=== PATIENT | male | born 1930 | race Hispanic/Latino ===

== ENCOUNTER → 2018-03-14 | Day surgery (SDC) | payer MEDICARE ==
[2018-03-13 10:27] LABS: BASOPHILS # (AUTO) 0.1 (0.0-0.1); BASOPHILS % 0.6 % (0.0-1.0); EOSINOPHILS # (AUTO) 0.3 (0.0-0.4); EOSINOPHILS % 2.4 % (0.0-6.0); HEMATOCRIT 36.8 % (38.2-49.6); HEMOGLOBIN 12.4 g/dL (14.0-18.0); LYMPHOCYTES # (AUTO) 2.6 (1.0-3.2); LYMPHOCYTES % 24.9 % (18.0-39.1); MEAN CORPUSCULAR HGB CONC 33.7 g/dL (31-35); MEAN CORPUSCULAR VOLUME 88.9 fL (81-99); MONOCYTES # (AUTO) 0.7 (0.2-0.8); MONOCYTES % 6.2 % (4.4-11.3); NEUTROPHILS # (AUTO) 6.9 (2.1-6.9); NEUTROPHILS % 65.7 % (38.7-80.0); PLATELET COUNT 224 x10e3/uL (140-360); RED BLOOD COUNT 4.14 x10e6/uL (4.3-5.7); RED CELL DISTRIBUTION WIDTH 13.2 % (11.7-14.4)
[2018-03-13 10:42] LABS: CALCIUM 9.5 mg/dL (8.4-10.2); CREATININE, SERUM 1.54 mg/dL (0.72-1.25)
--- NOTE | 2018-03-13 11:03 | Diagnostic Imaging Report ---
PROCEDURE: Frontal and lateral views of the chest. COMPARISON: Chest radiograph 01/02/16. INDICATIONS: PRE OPERATIVE CHEST X-RAY FOR CYSTO SURGERY FINDINGS: Lines/tubes: None. Lungs: The lungs are well inflated and clear. There is no evidence of pneumonia or pulmonary edema. Pleura: No evidence of pneumothorax. Trace right pleural effusion or scarring at the costophrenic angle is unchanged. Heart and mediastinum: The cardiomediastinal silhouette is unchanged. Atherosclerotic aortic calcification is noted. Bones: No acute bony abnormality. IMPRESSION: Clear lungs. No evidence of pneumonia or pulmonary edema. Dictated by: JUSTUS TRIMBLE M.D. on 03/13/2018 at 11:07 Electronically approved by: JUSTUS TRIMBLE M.D. on 03/13/2018 at 11:07
[~2018-03-14] MED LIST: AMLODIPINE BESYL5 MG PO; AMOXICILLIN500 MG PO; ASPIR 8181 MG; ASPIRIN81 MG; BELLADONNA/OPIUM 30 MG SUPP RC ONE; CEFTRIAXONE SOD 1 GM VIAL ONE; CILOSTAZOL100 MG PO; CIPROFLOXACIN500 M1; CLONIDINE HCL0.1 MG PO; CLOPIDOGREL75 MG PO; DEXAMETHASONE SOD PHOS INJ 4 MG/ML VIAL ONE; DOXAZOSIN MESYLA2 MG PO; FENTANYL CITRATE/PF 100MCG/2 ML INJ ONE; GENTAMICIN 80MG/NS 100 ML 200 ML IV ONE; HYDROCHLOROTHIA25 MG PO; IOPAMIDOL 300MG/ML 50ML INFUS..BTL IV ONE; IV ANTIBIOTIC IV; LIDOCAINE HCL 2% LOCAL INJ 5 ML SDV VIAL INJ ONE; LINZESS PO; LOSARTAN POTAS100 MG PO; LOVASTATIN40 MG PO; METOCLOPRAMIDE10 MG PO; MYRBETRIQ50 MG PO; OMEPRAZOLE40 MG PO; ONDANSETRON HCL INJ 2 MG/ML VIAL ONE; OXYBUTYNIN CHLOR5 MG PO; PROPOFOL IV EMULSION 10 MG/ML 20 ML VIAL ONE; QUETIAPINE FUMA25 MG PO; SEVOFLURANE INHAL SOLN 250 ML PEN BTL ONE; SUCRALFATE1 GM PO; VERAPAMIL ER240 M1; VESICARE5 MG PO; avodart
--- NOTE | 2018-05-01 01:47 | Operative Report ---
DATE OF PROCEDURE: March 14, 2018 PREOPERATIVE DIAGNOSES 1. Chronic renal insufficiency. 2. Urethral stricture disease. POSTOPERATIVE DIAGNOSES 1. Chronic renal insufficiency. 2. Urethral stricture disease. OPERATIONS PERFORMED 1. Cystourethroscopy with calibration and dilation of urethral stricture (separate procedure performed for the diagnosis of stricture). 2. Cystourethroscopy with bilateral ureteral catheterization and retrograde ureteropyelography (separate procedure performed for the chronic renal insufficiency). 3. Interpretation of retrograde pyelography. 4. Supervision of fluoroscopy. No radiologist present. 5. Interpretation of cystography. ANESTHESIA: General. COMPLICATIONS: None. CLINICAL SUMMARY: Michael Chaudhary is an 87-year-old man who has required recurrent dilations. He is status post transurethral resection of the prostate previously. He has urinary tract infections and renal insufficiency. He is brought for dilation. He is aware of the risks of bleeding, infection, injury to adjacent structures, need for additional procedures, and elected to proceed. OPERATIVE PROCEDURE IN DETAIL: Informed consent was verified. Michael Chaudhary was properly identified, taken to the operating room, placed on the cystoscopy table in supine position. Anesthesia was uneventfully begun. The patient was then carefully and gently repositioned in the dorsal lithotomy position with all pressure points well padded. His genitalia were prepared and draped in the sterile fashion. We could not place the cystoscope sheath into the patient's urethra due to stricture. We dilated the patient's distal urethra to 26-Sri [place]ankan progressively utilizing female sounds. We then utilized male Chilton sounds to dilate the proximal urethra to 28-Sri [place]ankan. Utilizing female sounds, we then inserted the cystoscope sheath with a visual obturator in place into the urethra. There was panurethral urethral stricture disease at closer end near the proximal penile urethra as well as in the bulbar region there were additional strictures. We removed the cystoscope and then we utilized Chilton male sounds to dilate the proximal urethra to 28-[place]ankan in size. Following this, we scoped the patient's urethra again. The urethra now was wide open despite all of its scarring and no longer did it exhibit strictures. We passed the normal sphincteric region, went into the prostate bed which was wide open being status post transurethral resection. There was minimal regrowth of the right lobe that was not obstructing. Panendoscopy of the urinary bladder revealed trabeculations. Normally positioned and configured ureteral orifices were identified. No suspicious lesions were noted. An 8-S[place]ankan catheter was used to cannulate each ureter and retrograde ureteropyelograms were performed. INTERPRETATION OF RETROGRADE URETEROPYELOGRAPHY: Contrast was instilled in a retrograde fashion bilaterally. There were no tumors, no stones and no diverticula. Unobstructed drainage was observed bilaterally fluoroscopically. Both of the patient's collecting systems were bifid in nature. Over a guidewire, we placed a litigation counsel tip Matthews catheter and a large-bore Matthews catheter. Once it was in position and inflated, cystography was performed. INTERPRETATION OF CYSTOGRAPHY: Contrast was instilled in a retrograde fashion via the Matthews catheter. The Matthews catheter balloon was within the patient's bladder. There was no sign of extravasation. Evaluation of reflux is limited due to the patient's prior retrogrades. The patient was then uneventfully reversed from anesthesia and taken to the recovery room in stable condition. There were no complications during the procedure. The patient tolerated the procedure well. Explicit postoperative instructions were given. We will follow the patient up in the office. Upon followup, we plan to place the patient to intermittent catheterizations regimen. This regimen will entail utilizing a 22-[place]ank[place] Coude-tipped Matthews catheters in an attempt to dilate the entire urethra. Should that fail, the patient will need to go back to a 20-[place]ankan coude-tip catheter in size and utilize that. Should that fail, the patient needs to go to an 18. The patient can then progressively dilate with larger bore catheters back to 22-Sri Lankan. Job#: [id number] GE cc:ALEX DINH MD
== END | disposition home or self-care (01) ==
LOC: OR 11:46
PROVIDERS: ATTEND Urology
DX: N35.9 Urethral stricture, unspecified (principal); I12.9 Hypertensive chronic kidney disease with stage 1 through stage 4 chronic kidney disease, or unspecified chronic kidney disease; N18.9 Chronic kidney disease, unspecified; N32.89 Other specified disorders of bladder; N40.1 Benign prostatic hyperplasia with lower urinary tract symptoms; N39.41 Urge incontinence; R33.8 Other retention of urine; R39.14 Feeling of incomplete bladder emptying; R35.1 Nocturia; N32.81 Overactive bladder; N43.3 Hydrocele, unspecified; N50.0 Atrophy of testis; N39.0 Urinary tract infection, site not specified; N43.40 Spermatocele of epididymis, unspecified; N40.3 Nodular prostate with lower urinary tract symptoms; N20.0 Calculus of kidney; K58.9 Irritable bowel syndrome, unspecified; H91.90 Unspecified hearing loss, unspecified ear; H54.61 Unqualified visual loss, right eye, normal vision left eye; Z01.810 Encounter for preprocedural cardiovascular examination; Z01.812 Encounter for preprocedural laboratory examination; Z01.818 Encounter for other preprocedural examination; Z79.02 Long term (current) use of antithrombotics/antiplatelets; Z98.890 Other specified postprocedural states
CPT/HCPCS: 36415; 52281; 71046; 80048; 85025; 93005; C1758; J0696; J1100; J1580; J2001; J2405; Q9967

== ENCOUNTER → 2018-07-25 | Outpatient (CLI) | payer MEDICARE ==
[~2018-07-25] MED LIST changes: +AMITIZA24 MCG PO; -BELLADONNA/OPIUM 30 MG SUPP RC ONE; -CEFTRIAXONE SOD 1 GM VIAL ONE; -DEXAMETHASONE SOD PHOS INJ 4 MG/ML VIAL ONE; +DIATRIZOATE MEGL/DIATRIZOA SOD 30 ML BTL PO ONE; -FENTANYL CITRATE/PF 100MCG/2 ML INJ ONE; +GABAPENTIN400 MG PO; -GENTAMICIN 80MG/NS 100 ML 200 ML IV ONE; -IOPAMIDOL 300MG/ML 50ML INFUS..BTL IV ONE; +IOPAMIDOL 370 MG/ML 200 ML INFUS..BTL INJ ONE; -LIDOCAINE HCL 2% LOCAL INJ 5 ML SDV VIAL INJ ONE; +NITROFURANTOIN100 MG PO; -ONDANSETRON HCL INJ 2 MG/ML VIAL ONE; -PROPOFOL IV EMULSION 10 MG/ML 20 ML VIAL ONE; +RANITIDINE HCL300 MG PO; -SEVOFLURANE INHAL SOLN 250 ML PEN BTL ONE; +SODIUM CHLORIDE 0.9% 250ML 500 ML ONE; +SODIUM CHLORIDE 0.9% 50ML 50 ML ONE
[2018-07-25 12:16] LABS: CREATININE, SERUM 1.33 mg/dL (0.72-1.25)
--- NOTE | 2018-07-25 14:46 | Diagnostic Imaging Report ---
EXAMINATION: CT of the abdomen and pelvis with contrast. TECHNIQUE: Spiral CT images of the abdomen and pelvis were performed from the lung bases to the lesser trochanters after the intravenous administration of 100 cc of Isovue 370 and the oral administration of diluted Gastrografin. Coronal and sagittal reformatted images were obtained. COMPARISON: CTA abdomen and pelvis 06/08/2015 CLINICAL HISTORY:Abdominal distention, chronic abdominal pain DISCUSSION: ABDOMEN/PELVIS: LOWER THORAX:Stable 4 mm pulmonary nodule in the right lower lobe (series 2, image 10). HEPATOBILIARY: Stable 1.1 cm simple cyst in hepatic segment GRAYSON (series 2, image 11). No other focal hepatic lesions. No intra or extrahepatic biliary ductal dilation. GALLBLADDER: Multiple gallstones are again noted in the dependent portion of the gallbladder lumen. No wall thickening or pericholecystic fluid. SPLEEN: No splenomegaly. PANCREAS: No focal masses or ductal dilatation. ADRENALS: No adrenal nodules. KIDNEYS/URETERS: No hydronephrosis, stones, or solid mass lesions. Slight interval increase in size in 4.3 cm interpolar and 1.6 cm superior pole simple cysts in the right kidney (series 2, image 27 and 20), which previously measured 4.0 and 1.4 cm in greatest diameter, respectively. Stable 2.3 cm simple cyst in the medial mid to inferior left kidney (2, image 31). Stable 1.0 cm simple cyst in the left interpolar region (series 2, image 26). PELVIC ORGANS/BLADDER: Bladder is unremarkable. No focal lesions or wall thickening. Dystrophic calcifications in the prostate. PERITONEUM/RETROPERITONEUM: No free air or fluid. LYMPH NODES: No intra-abdominal, retroperitoneal, pelvic or inguinal lymphadenopathy. VESSELS: The celiac trunk,superior and inferior mesenteric and bilateral renal arteries are patent The portal, superior mesenteric and splenic veins are patent. Atherosclerotic calcification of the abdominal aorta and iliac vessels GI TRACT: No bowel dilation or evidence of obstruction. No pericolonic inflammatory changes. Descending and sigmoid colon extensive diverticulosis, without diverticulitis. Stomach is unremarkable. BONES AND SOFT TISSUE: No aggressive lytic lesions. Multilevel degenerative disc changes in the lower thoracic and lumbosacral spine, worse at L2-L3, L3-L4 and L5-S1. No soft tissue abnormalities. IMPRESSION: 1. No acute abdominopelvic abnormalities. No bowel dilation or evidence of obstruction. No pericolonic inflammatory changes. 2. Descending and sigmoid colon diverticulosis, without diverticulitis. 3. Slight interval increase in size of renal simple cysts, as described. 4. Cholelithiasis, without CT evidence of cholecystitis. 5. Stable simple hepatic cyst. 6. Stable 4 mm pulmonary nodule in the right lower lobe since 2015, which is presumed benign. Signed by: Dr. Edy Islas M.D. on 07/25/2018 2:43 PM
== END ==
LOC: CT 11:21
PROVIDERS: ATTEND Internal Medicine Gastroenterology
DX: R10.32 Left lower quadrant pain (principal); R14.0 Abdominal distension (gaseous); K59.00 Constipation, unspecified; I10 Essential (primary) hypertension; E66.3 Overweight; Z71.3 Dietary counseling and surveillance
CPT/HCPCS: 36415; 74177; 82565; 84520; 96360; J7050; Q9663; Q9967

== ENCOUNTER → 2018-08-20 | Day surgery (SDC) | payer MEDICARE ==
[2018-08-15 10:03] LABS: BASOPHILS # (AUTO) 0.1 (0.0-0.1); BASOPHILS % 0.6 % (0.0-1.0); EOSINOPHILS # (AUTO) 0.3 (0.0-0.4); EOSINOPHILS % 2.4 % (0.0-6.0); HEMATOCRIT 37.5 % (38.2-49.6); HEMOGLOBIN 12.7 g/dL (14.0-18.0); LYMPHOCYTES # (AUTO) 3.4 (1.0-3.2); LYMPHOCYTES % 27.9 % (18.0-39.1); MEAN CORPUSCULAR HEMOGLOBIN 30.6 pg (28-32); MEAN CORPUSCULAR HGB CONC 33.9 g/dL (31-35); MEAN CORPUSCULAR VOLUME 90.4 fL (81-99); MONOCYTES % 8.1 % (4.4-11.3); NEUTROPHILS # (AUTO) 7.3 (2.1-6.9); NEUTROPHILS % 60.4 % (38.7-80.0); PLATELET COUNT 227 x10e3/uL (140-360); RED BLOOD COUNT 4.15 x10e6/uL (4.3-5.7); RED CELL DISTRIBUTION WIDTH 13.3 % (11.7-14.4)
[2018-08-15 10:26] LABS: ALBUMIN 3.6 g/dL (3.5-5.0); ANION GAP 11.7 mmol/L (8-16); CALCIUM 9.2 mg/dL (8.4-10.2); CREATININE, SERUM 1.4 mg/dL (0.72-1.25); POTASSIUM 3.7 mmol/L (3.5-5.1)
[~2018-08-20] MED LIST changes: +BUPIVACAINE HCL 0.5% INJ 30 ML VIAL INJ ONE; +CEFAZOLIN SOD 2 GM/D5W 50ML 50 ML IV ONE; +DEXAMETHASONE SOD PHOS INJ 4 MG/ML VIAL ONE; -DIATRIZOATE MEGL/DIATRIZOA SOD 30 ML BTL PO ONE; +FENTANYL CITRATE/PF 100MCG/2 ML INJ ONE; +HYDRALAZINE HCL 20 MG/ML VIAL ONE; +HYDROMORPHONE 2MG/ML 2 MG/ML ML ONE; -IOPAMIDOL 370 MG/ML 200 ML INFUS..BTL INJ ONE; +LIDOCAINE HCL 2% LOCAL INJ 5 ML SDV VIAL INJ ONE; +ONDANSETRON HCL INJ 2MG/ML 2ML 2 MG/ML VIAL ONE; +PROPOFOL IV EMULSION 10 MG/ML 20 ML VIAL ONE; +ROCURONIUM BROMIDE 10 MG/ML 5ML VIAL ONE; +SEVOFLURANE INHAL SOLN 250 ML PEN BTL ONE; -SODIUM CHLORIDE 0.9% 250ML 500 ML ONE; -SODIUM CHLORIDE 0.9% 50ML 50 ML ONE; +SUGAMMADEX SODIUM 200 MG/2 ML VIAL IV ONE
--- NOTE | 2018-08-20 15:30 | Operative Report ---
DATE OF PROCEDURE: August 20, 2018 PREOPERATIVE DIAGNOSIS: Chronic cholecystitis and cholelithiasis. POSTOPERATIVE DIAGNOSIS: Chronic cholecystitis and cholelithiasis. PROCEDURES 1. Diagnostic laparoscopy. 2. Laparoscopic cholecystectomy. INSULATOR TECHNICIAN: None. ANESTHESIA: General. INDICATIONS AND FINDINGS: The patient is an 88-year-old male who presented with complaints of epigastric abdominal pain after eating with complaint of gallstones. At surgery, the patient's gallbladder was distended with adhesions involving the omentum over the neck and fundus of the gallbladder. Cystic duct was about 3 mm in diameter. Common bile duct was about 7 mm in diameter. Liver, stomach and lower abdomen all appeared normal. TECHNIQUE: After adequate general endotracheal anesthesia with the patient in the supine position, the abdomen was prepped and draped in a sterile fashion with ChloraPrep solution. Skin in the umbilicus was infiltrated with 0.5% Marcaine. Incision was made in the umbilicus. Abdominal wall was elevated and Veress needle was introduced. Pneumoperitoneum was then created. A 10-mm trocar and cannula was then passed through the umbilical wound. Laparoscopic camera was introduced. Initial laparoscopy revealed no obvious abnormalities. A 10-mm trocar and cannula was placed in the epigastrium. Two 5-mm trocars and cannulas placed in the right upper quadrant. These were placed under direct vision. Fundus of the gallbladder was grasped and retracted superiorly. There were adhesions over the neck and fundus of the gallbladder involving the omentum. These were lysed staying close the gallbladder. Neck of the gallbladder was grasped and retracted laterally. Peritoneum over the neck of the gallbladder was incised. The gallbladder cystic duct junction was dissected free. Cystic artery was also dissected free. The neck of the gallbladder completely dissected free. Cystic artery was divided between Hemoclips close to the gallbladder. Cystic duct was also divided between Hemoclips with 3 clips being left on the common bile duct side. The gallbladder was dissected free from the liver using scissors and electrocautery. Once it was entirely free, it was placed into an Endopouch and brought out through the epigastric cannula. Gallbladder bed was inspected for hemostasis, which was seen to be adequate. It was irrigated with saline. All fluid aspirated and inspected once again for hemostasis, which was seen to be adequate. Instruments and cannulas were then removed. Pneumoperitoneum was evacuated. Wounds were then closed. Fascia in the umbilical and epigastric wound closed with 0 Vicryl. Skin to all wounds closed with jennifer. Sterile dressings were applied to each wound. The patient tolerated the procedure well. Estimated blood loss was 10 mL. There were no complications. All counts were correct. The patient was taken to the recovery room in satisfactory condition. Job#: [id number] RI cc:ALEX DINH MD
[2018-08-20 16:15] VITALS: BP 147/76
== END | disposition home or self-care (01) ==
LOC: OR 09:49
PROVIDERS: ATTEND Surgery
DX: K80.10 Calculus of gallbladder with chronic cholecystitis without obstruction (principal); K82.8 Other specified diseases of gallbladder; I10 Essential (primary) hypertension; R00.1 Bradycardia, unspecified; Z01.810 Encounter for preprocedural cardiovascular examination; Z01.812 Encounter for preprocedural laboratory examination; Z87.891 Personal history of nicotine dependence
CPT/HCPCS: 36415; 47562; 80053; 85025; 88304; 93005; J0360; J0690; J1100; J1170; J2001; J2405; J2704

== ENCOUNTER 2018-10-14 07:56 | Emergency (ER) | payer MEDICARE ==
[~2018-10-14] VITALS: Ht 165.1 cm; Wt 77.1 kg
[~2018-10-14 07:56] MED LIST changes: -BUPIVACAINE HCL 0.5% INJ 30 ML VIAL INJ ONE; -CEFAZOLIN SOD 2 GM/D5W 50ML 50 ML IV ONE; -DEXAMETHASONE SOD PHOS INJ 4 MG/ML VIAL ONE; -FENTANYL CITRATE/PF 100MCG/2 ML INJ ONE; -HYDRALAZINE HCL 20 MG/ML VIAL ONE; -HYDROMORPHONE 2MG/ML 2 MG/ML ML ONE; -LIDOCAINE HCL 2% LOCAL INJ 5 ML SDV VIAL INJ ONE; -ONDANSETRON HCL INJ 2MG/ML 2ML 2 MG/ML VIAL ONE; -PROPOFOL IV EMULSION 10 MG/ML 20 ML VIAL ONE; -ROCURONIUM BROMIDE 10 MG/ML 5ML VIAL ONE; -SEVOFLURANE INHAL SOLN 250 ML PEN BTL ONE; -SUGAMMADEX SODIUM 200 MG/2 ML VIAL IV ONE
[2018-10-14] MEDS ORDERED: SODIUM CHLORIDE 0.9% 1000ML 1,000 ML IV STA (08:21)
[2018-10-14 08:41] LABS: CLARITY,URINE HAZY (CLEAR); COLOR,URINE YELLOW (YELLOW); KETONES,URINE NEGATIVE (NEGATIVE); LEUKOCYTE ESTERASE ,URINE TRACE (NEGATIVE); NITRITE,URINE POSITIVE (NEGATIVE); PROTEIN,URINE DIPSTICK 1+ (NEGATIVE)
[2018-10-14 08:42] LABS: BILIRUBIN,URINE 1+ (NEGATIVE); URINE UROBILINOGEN 4 mg/dL (0.2 - 1)
[2018-10-14 08:53] LABS: EPITHELIAL CELLS,URINE FEW /LPF; MUCUS,URINE RARE (RARE)
[2018-10-14] MEDS ORDERED: ONDANSETRON HCL INJ 2MG/ML 2ML 2 MG/ML VIAL IV ONE (09:00)
[2018-10-14] MEDS ORDERED: PANTOPRAZOLE 40 MG 10ML VIAL IV ONE (09:00)
[2018-10-14 09:21] LABS: BASOPHILS # (AUTO) 0.1 (0.0-0.1); BASOPHILS % 0.5 % (0.0-1.0); EOSINOPHILS # (AUTO) 0.2 (0.0-0.4); EOSINOPHILS % 1.8 % (0.0-6.0); HEMATOCRIT 39.5 % (38.2-49.6); HEMOGLOBIN 13.3 g/dL (14.0-18.0); LYMPHOCYTES # (AUTO) 2.2 (1.0-3.2); LYMPHOCYTES % 20.2 % (18.0-39.1); MEAN CORPUSCULAR HEMOGLOBIN 29.2 pg (28-32); MEAN CORPUSCULAR HGB CONC 33.7 g/dL (31-35); MEAN CORPUSCULAR VOLUME 86.8 fL (81-99); MONOCYTES # (AUTO) 0.8 (0.2-0.8); MONOCYTES % 7.4 % (4.4-11.3); NEUTROPHILS # (AUTO) 7.6 (2.1-6.9); NEUTROPHILS % 69.8 % (38.7-80.0); PLATELET COUNT 287 x10e3/uL (140-360); RED BLOOD COUNT 4.55 x10e6/uL (4.3-5.7); RED CELL DISTRIBUTION WIDTH 13.1 % (11.7-14.4)
[2018-10-14 09:33] LABS: INR 0.89; PROTHROMBIN TIME 12.9 seconds (11.9-14.5)
[2018-10-14 09:34] LABS: PARTIAL THROMBOPLASTIN TIME 36.2 seconds (23.8-35.5)
[2018-10-14 09:36] LABS: ALBUMIN 3.8 g/dL (3.5-5.0); ALBUMIN/GLOBULIN RATIO 0.9 (0.8-2.0); CALCIUM 9.3 mg/dL (8.4-10.2); CREATININE, SERUM 1.76 mg/dL (0.72-1.25); MAGNESIUM 2.4 MG/DL (1.3-2.1)
[2018-10-14 09:42] LABS: CREATINE KINASE MB 1.7 ng/mL (0-5.0)
[2018-10-14] MEDS ORDERED: PIPER-TAZ 3.375 GM 50 ML IV ONE (09:45)
--- NOTE | 2018-10-14 10:29 | Diagnostic Imaging Report ---
EXAMINATION: CT of the abdomen and pelvis without contrast. TECHNIQUE: Spiral CT images of the abdomen and pelvis were performed from the lung bases to the lesser trochanters. No intravenous contrast was given per the diminished GFR. Coronal and sagittal reformatted images were obtained. COMPARISON: CT abdomen and pelvis with contrast 07/25/2018 CLINICAL HISTORY:Left lower quadrant and suprapubic pain. DISCUSSION: ABSENCE OF INTRAVENOUS CONTRAST DECREASES SENSITIVITY FOR DETECTION OF FOCAL LESIONS AND VASCULAR PATHOLOGY. ABDOMEN/PELVIS: LOWER THORAX: 4 mm right lower lobe pulmonary nodule unchanged. Juxtapleural right lower lobe opacity is also unchanged. HEPATOBILIARY:Unchanged cyst in hepatic segment 4A and calcified granuloma in hepatic segment 8. Interval cholecystectomy with metallic clips in the gallbladder fossa. SPLEEN: No splenomegaly. PANCREAS: No focal masses or ductal dilatation. ADRENALS: No adrenal nodules. KIDNEYS/URETERS: 4.4 cm exophytic cyst projecting from the upper pole of the right kidney and 1.6 cm simple cyst projecting more medially from the upper pole, unchanged. Small exophytic left lower pole renal cyst unchanged as well. No hydronephrosis or calculi. PELVIC ORGANS/BLADDER: Matthews catheter retention balloon lies within the bladder base. Air in the nondependent portion of the bladder is presumably related to catheterization. Coarse prostatic calcifications. PERITONEUM/RETROPERITONEUM: No ascites. No pneumoperitoneum. LYMPH NODES: No pelvic sidewall, retroperitoneal, or mesenteric lymphadenopathy. VESSELS: Limited evaluation without intravenous contrast. Atherosclerotic calcification of the abdominal aorta and major branch vessels, as well as the iliac arterial systems without aneurysmal dilatation. GI TRACT: The large bowel is notable for innumerable sigmoid and descending colon diverticula without wall thickening or adjacent inflammatory change. The appendix is not identified in keeping with prior appendectomy. The stomach is collapsed with prominent rugal folds. No small bowel dilatation to suggest obstruction. BONES AND SOFT TISSUES: Probable calcified mesenteric lymph node versus focal omental fat necrosis in the left lower quadrant unchanged. Postsurgical changes of right inguinal hernia repair. No osseous destructive lesions. Multilevel degenerative disc changes and facet arthropathy of the lumbar spine. IMPRESSION: No acute intra-abdominal or pelvic CT abnormalities. Interval cholecystectomy and Matthews catheter placement without additional significant interval change relative to 07/25/2018. Large bowel diverticulosis without evidence of diverticulitis. Atherosclerotic vascular disease. Signed by: Dr. Quinton Jaimes M.D. on 10/14/2018 10:26 AM
--- NOTE | 2018-10-14 10:39 | Diagnostic Imaging Report ---
Examination: Single AP view of the chest. COMPARISON: None available INDICATION: Abdominal pain DISCUSSION: Lungs are well-inflated and without focal consolidation, pleural effusion, or pneumothorax. Atherosclerotic calcification of the thoracic aorta with otherwise normal cardiomediastinal contour. No pulmonary edema. No acute osseous abnormality. No free air under the diaphragm. IMPRESSION: No acute cardiopulmonary abnormality. Signed by: Dr. Quinton Jaimes M.D. on 10/14/2018 10:36 AM
[2018-10-14] MEDS ORDERED: SODIUM CHLORIDE 0.9% 50ML 50 ML ONE (11:27)
[2018-10-14] MEDS ORDERED: IOPAMIDOL 370 MG/ML 200 ML INFUS..BTL INJ ONE (11:27)
[2018-10-14] MEDS ORDERED: POTASSIUM CHLORIDE 20 MEQ TAB CR PO ONE (12:00)
[2018-10-14 12:03] VITALS: BP 137/56
== END 2018-10-14 12:24 | disposition home or self-care (01) ==
LOC: ER 07:56
DX: R10.32 Left lower quadrant pain (principal); R11.0 Nausea; N30.90 Cystitis, unspecified without hematuria
CPT/HCPCS: 36415; 71045; 74176; 80053; 81001; 82150; 82550; 82553; 83605; 83690; 83735; 84484; 85025; 85610; 85730; 87040; 87086; 99284; C9113; J2405; J2543; J7030; Q9967

== ENCOUNTER → 2018-12-18 | Day surgery (SDC) | payer MEDICARE ==
[~2018-12-18] MED LIST changes: +PROPOFOL IV EMULSION 10 MG/ML 50 ML VIAL ONE
[2018-12-18 08:18] LABS: BASOPHILS # (AUTO) 0.1 (0.0-0.1); BASOPHILS % 0.5 % (0.0-1.0); EOSINOPHILS # (AUTO) 0.2 (0.0-0.4); EOSINOPHILS % 2.2 % (0.0-6.0); HEMATOCRIT 42.4 % (38.2-49.6); HEMOGLOBIN 14.2 g/dL (14.0-18.0); LYMPHOCYTES # (AUTO) 2.8 (1.0-3.2); LYMPHOCYTES % 30.1 % (18.0-39.1); MEAN CORPUSCULAR HEMOGLOBIN 29.9 pg (28-32); MEAN CORPUSCULAR HGB CONC 33.5 g/dL (31-35); MEAN CORPUSCULAR VOLUME 89.3 fL (81-99); MONOCYTES # (AUTO) 0.7 (0.2-0.8); MONOCYTES % 7.1 % (4.4-11.3); NEUTROPHILS # (AUTO) 5.5 (2.1-6.9); NEUTROPHILS % 59.8 % (38.7-80.0); PLATELET COUNT 227 x10e3/uL (140-360); RED BLOOD COUNT 4.75 x10e6/uL (4.3-5.7); RED CELL DISTRIBUTION WIDTH 13.7 % (11.7-14.4)
[2018-12-18 10:45] VITALS: BP 149/84
== END | disposition home or self-care (01) ==
LOC: OR 06:45
PROVIDERS: ATTEND Internal Medicine Gastroenterology
DX: K29.50 Unspecified chronic gastritis without bleeding (principal); K22.2 Esophageal obstruction; K21.0 Gastro-esophageal reflux disease with esophagitis; K44.9 Diaphragmatic hernia without obstruction or gangrene; K57.30 Diverticulosis of large intestine without perforation or abscess without bleeding; K64.8 Other hemorrhoids; Z71.3 Dietary counseling and surveillance; E66.3 Overweight; I10 Essential (primary) hypertension; Z68.27 Body mass index [BMI] 27.0-27.9, adult
CPT/HCPCS: 36415; 43239; 45378; 85025; 88305; 88312; 93005; J2704

== ENCOUNTER 2019-03-19 21:18 | Emergency (ER) | payer MEDICARE ==
[~2019-03-19] VITALS: Ht 165.1 cm; Wt 77.1 kg
[~2019-03-19 21:18] MED LIST changes: -PROPOFOL IV EMULSION 10 MG/ML 50 ML VIAL ONE
--- NOTE | 2019-03-19 22:00 | NUR ---
PT VOIDED APPROXIMATELY 100CC CLOUDY STRAW COLORED URINE. POST VOID RESIDUAL CHECKED C BLADDER SCANNERX3 . 0CC NOTED PER SCANNER.
[2019-03-19 22:16] LABS: BILIRUBIN,URINE NEGATIVE (NEGATIVE); CLARITY,URINE CLOUDY (CLEAR); KETONES,URINE NEGATIVE (NEGATIVE); LEUKOCYTE ESTERASE ,URINE MODERATE (NEGATIVE); NITRITE,URINE NEGATIVE (NEGATIVE); PROTEIN,URINE DIPSTICK NEGATIVE (NEGATIVE); URINE UROBILINOGEN 0.2 mg/dL (0.2 - 1)
[2019-03-19 22:18] LABS: COLOR,URINE STRAW (YELLOW)
[2019-03-19 22:27] LABS: BACTERIA,URINE FEW /HPF; EPITHELIAL CELLS,URINE FEW /LPF; RBC,URINE >50 /HPF (0-5)
[2019-03-19 22:44] VITALS: BP 155/74
[2019-03-19] MEDS ORDERED: CEFTRIAXONE SOD 1 GM VIAL IM ONE (22:45)
[2019-03-19] MEDS ORDERED: LIDOCAINE HCL 1% 2 ML AMP ONE (22:53)
== END 2019-03-19 23:17 | disposition home or self-care (01) ==
LOC: ER 21:18
DX: R30.0 Dysuria (principal); R35.0 Frequency of micturition; N30.91 Cystitis, unspecified with hematuria; I10 Essential (primary) hypertension; Z87.19 Personal history of other diseases of the digestive system
CPT/HCPCS: 81001; 87086; 99283; J0696; J2001

== ENCOUNTER 2019-03-22 00:41 | Emergency (ER) | payer MEDICARE ==
[~2019-03-22] VITALS: Ht 165.1 cm; Wt 77.1 kg
[2019-03-22 01:08] LABS: BILIRUBIN,URINE NEGATIVE (NEGATIVE); CLARITY,URINE CLEAR (CLEAR); COLOR,URINE YELLOW (YELLOW); KETONES,URINE NEGATIVE (NEGATIVE); LEUKOCYTE ESTERASE ,URINE NEGATIVE (NEGATIVE); NITRITE,URINE NEGATIVE (NEGATIVE); PROTEIN,URINE DIPSTICK TRACE (NEGATIVE); URINE UROBILINOGEN 0.2 mg/dL (0.2 - 1)
[2019-03-22 01:17] LABS: AMORPHOUS SEDIMENT,URINE FEW (FEW); BACTERIA,URINE RARE /HPF; EPITHELIAL CELLS,URINE FEW /LPF; MUCUS,URINE MODERATE (RARE); WBC,URINE (MAN) 0-5 /HPF (0-5)
[2019-03-22] MEDS ORDERED: HYDROCODONE/APAP 5MG-325MG TAB PO ONE (01:30)
--- NOTE | 2019-03-22 02:50 | Diagnostic Imaging Report ---
EXAM: CT Abdomen and Pelvis WITHOUT contrast INDICATION: Abdominal pain. Prior surgery for bowel obstruction. COMPARISON: October 14, 2018. TECHNIQUE: Abdomen and pelvis were scanned utilizing a multidetector helical scanner from the lung base to the pubic symphysis without administration of IV contrast. Absence of intravenous contrast decreases sensitivity for detection of focal lesions and vascular pathology. Coronal and sagittal reformations were obtained. Routine protocol was performed. IV CONTRAST: None. ORAL CONTRAST: Water RADIATION DOSE: Total DLP: 449.30 mGy*cm Estimated effective dose: (DLP x 0.015 x size factor) mSv COMPLICATIONS: None FINDINGS: LINES and TUBES: None. LOWER THORAX: Unremarkable HEPATOBILIARY: 1.3 cm cyst in the segment 2 of the liver, unchanged. No biliary ductal dilation. GALLBLADDER: There are cholecystectomy clips. SPLEEN: No splenomegaly. PANCREAS: No focal masses or ductal dilatation. ADRENALS: No adrenal nodules KIDNEYS/URETERS: No hydronephrosis. Bilateral simple renal cysts again observed, the largest in the anterior interpolar region of the right kidney measuring 4.8 cm. 2.5 cm cyst in the medial interpolar region of the left kidney. 9 mm high attenuation lesion in the lower pole of the left kidney observed, suggestive of a hyperdense cyst, not completely evaluated the left of contrast. No stones. GI TRACT: No abnormal distention, wall thickening, or evidence of bowel obstruction. There are diverticula predominantly in the sigmoid colon without evidence of diverticulitis. Appendix is nonvisualized. PELVIC ORGANS/BLADDER: Small volume of left hydrocele. Mild diffuse scrotal edema. Stranding of the fat within the left inguinal canal. Findings suggestive of status post right orchiectomy with absent right traumatic cord. LYMPH NODES: No lymphadenopathy. VESSELS: There is moderate atherosclerotic disease in the aorta and major arterial branches. PERITONEUM / RETROPERITONEUM: No free air or fluid. BONES: There are degenerative changes in the lumbar spine. SOFT TISSUES: Unremarkable. IMPRESSION: 1. No acute abdominal pelvic abnormality. 2. Small volume of left hydrocele. Stranding of the fat within the left inguinal, nonspecific, possibly inflammatory etiology in proper clinical setting. 3. Colonic diverticulosis without CT evidence of diverticulitis. Signed by: Dr. Angie Junior M.D. on 03/22/2019 2:47 AM
--- NOTE | 2019-03-22 03:35 | NUR ---
PT RESTING COMFORTABLY, AWAITING US TECH FOR US OF SCROTUM.
--- NOTE | 2019-03-22 03:39 | Diagnostic Imaging Report ---
EXAM: Scrotal Ultrasound INDICATION: Testicular pain. COMPARISON: None. Correlation with CT abdomen pelvis dated 03/22/2019. TECHNIQUE: Transverse and longitudinal images were obtained of the scrotum with grayscale imaging, color Doppler and spectral waveform analysis. FINDINGS: Right testis: Surgically absent. Left testis: Size: 3.2 x 2.2 x 2.7 cm, normal in size. Echogenicity: Normal Mass/Cysts: None. Epididymis: Appearance: The left epididymal tail is prominent measuring 1. Centimeters, demonstrating increased blood flow. Mass/Cysts: Small cyst in the left epididymal head measures 0.5 x 0.4 x 0.4 cm. Extratesticular: Masses: None Fluid collections: Small volume hydrocele. Doppler: Increased blood flow into the left testicle. IMPRESSION: 1. Findings consistent with left acute epididymoorchitis. Signed by: Dr. Angie Junior M.D. on 03/22/2019 3:36 AM
== END 2019-03-22 04:30 | disposition home or self-care (01) ==
LOC: ER 01:29
DX: R30.0 Dysuria (principal); R33.9 Retention of urine, unspecified; N45.1 Epididymitis; N45.2 Orchitis
CPT/HCPCS: 74176; 76870; 81001; 93976; 99284

== ENCOUNTER → 2019-10-08 | Outpatient (CLI) | payer MEDICARE ==
[~2019-10-08] MED LIST changes: +SODIUM CHLORIDE 0.9% 500ML 0 ML ONE; +SODIUM CHLORIDE 0.9% 500ML 500 ML ONE
[2019-10-08 15:32] LABS: CREATININE, SERUM 1.69 mg/dL (0.72-1.25)
--- NOTE | 2019-10-08 16:54 | Diagnostic Imaging Report ---
EXAM: CT Abdomen and Pelvis WITH intravenous contrast INDICATION: Abdominal pain COMPARISON: Abdomen and pelvis CT of 03/22/2019 TECHNIQUE: Abdomen and pelvis were scanned utilizing a multidetector helical scanner from the lung base to the pubic symphysis after administration of IV contrast. Coronal and sagittal reformations were obtained. Routine protocol was performed. Scan was performed during portal venous phase. IV CONTRAST: 100mL of Isovue 370 ORAL CONTRAST: Water RADIATION DOSE: Total DLP: 444.1 mGy*cm Dose modulation, iterative reconstruction, and/or weight based adjustment of the mA/kV was utilized to reduce the radiation dose to as low as reasonably achievable. FINDINGS: LOWER THORAX: Normal. HEPATOBILIARY: Subcentimeter segment 4 hypodense lesion, possibly a cyst. No other focal liver lesions. No biliary ductal dilation. Status post cholecystectomy. SPLEEN: No splenomegaly. PANCREAS: No focal masses or ductal dilatation. ADRENALS: No adrenal nodules. KIDNEYS/URETERS: No hydronephrosis, stones, or solid mass lesions. Bilateral simple renal cysts, the largest of which measures up to 4.5 cm at the right upper pole. PELVIC ORGANS/BLADDER: Unremarkable. PERITONEUM / RETROPERITONEUM: No free air or fluid. LYMPH NODES: No lymphadenopathy. VESSELS: Diffuse atherosclerotic calcifications of the nonaneurysmal abdominal aorta and major branches. GI TRACT: Severe diverticulosis. No CT evidence of diverticulitis. No abnormal bowel wall thickening. No bowel obstruction. Reported history of appendectomy. BONES AND SOFT TISSUES: No acute osseous injury. No suspicious lytic or blastic lesions. Multilevel degenerative changes of the visualized spine. Grade 1 retrolisthesis at L3-4 and L4-5. IMPRESSION: No acute findings in the abdomen or pelvis. Severe diverticulosis without CT evidence of diverticulitis. Signed by: Sundar Alvarado MD on 10/08/2019 4:51 PM
== END ==
LOC: CT 14:51
PROVIDERS: ATTEND Internal Medicine Gastroenterology
DX: R10.13 Epigastric pain (principal)
CPT/HCPCS: 36415; 74177; 82565; 84520; 96360; J7040

== ENCOUNTER 2020-03-07 15:29 | Emergency (ER) | payer MEDICARE ==
[~2020-03-07] VITALS: Ht 165.1 cm; Wt 77.1 kg
[~2020-03-07 15:29] MED LIST changes: -SODIUM CHLORIDE 0.9% 500ML 0 ML ONE; -SODIUM CHLORIDE 0.9% 500ML 500 ML ONE
[2020-03-07] MEDS ORDERED: FAMOTIDINE 20 MG/2 ML VIAL IV STA (16:33)
--- NOTE | 2020-03-07 17:28 | Emergency Department Note ---
History of Present Illnes History of Present Illness Chief Complaint: Abdominal Complaints History of Present Illness This is a 89 year old male arrives to the ED for epigastric pain for 1 month states he was unable to see his GI doctor. Patient denies any nausea vomiting or diarrhea.. Historian: Patient Arrival Mode: Car Onset (how long ago): month(s) Radiation: Reports non-radiation Severity: mild Duration (how long): month(s) Timing of current episode: intermittent Progression: unchanged Context: Denies recent illness, Denies recent surgery Relieving factors: none Associated symptoms: Denies chest pain, Denies cough, Denies diaphoresis, Denies fever/chills Past Medical/Family History Physician Review I have reviewed the patient's past medical and family history. Any updates have been documented here. Past Medical History Recent Fever: No Clinical Suspicion of Infectio: No New/Unexplained Change in Ment: No Past Medical History: Hypertension, GERD Other Medical History: BOWEL OBSTRUCTION PROSTATE PROBLEMS Past Surgical History: Cholecysctectomy, Appendectomy Other Surgery: ABD SURGERY FOR BOWEL OBSTRUCTION RT TESTICLE REMOVED Social History Smoking Cessation: Never Smoker Counseling Performed: No Any Illegal Drug Use: No TB Exposure/Symptoms: No Physically hurt or threatened: No Other Last Tetanus: UNK Review of Systems Review of Systems Constitutional: Reports no symptoms EENTM: Reports no symptoms Cardiovascular: Reports no symptoms Respiratory: Reports no symptoms Gastrointestinal: Reports as per HPI, Reports abdominal pain Genitourinary: Reports no symptoms Musculoskeletal: Reports no symptoms Integumentary: Reports no symptoms Neurological: Reports no symptoms Psychological: Reports no symptoms Endocrine: Reports no symptoms Hematological/Lymphatic: Reports no symptoms Physical Exam Related Data Allergies: Coded Allergies: No Known Allergies (Unverified , 10/14/18) Triage Vital Signs Vital Signs Date Time Temp Pulse Resp B/P (MAP) Pulse Ox O2 Delivery O2 Flow Rate FiO2 03/07/20 16:01 98.1 56 18 163/59 98 Room Air Vital signs reviewed: Yes Physical Exam CONSTITUTIONAL Constitutional: Present well-developed, Present well-nourished HENT HENT: Present normocephalic, Present atraumatic, Present oropharynx clear/moist, Present nose normal HENT L/R: Present left ext ear normal, Present right ext ear normal EYES Eyes: Reports PERRL, Reports conjunctivae normal NECK Neck: Present ROM normal PULMONARY Pulmonary: Present effort normal, Present breath sounds normal CARDIOVASCULAR Cardiovascular: Present regular rhythm, Present heart sounds normal, Present capillary refill normal, Present normal rate GASTROINTESTINAL Abdominal: Present soft, Present nontender, Present bowel sounds normal GENITOURINARY Genitourinary: Present exam deferred SKIN Skin: Present warm, Present dry MUSCULOSKELETAL Musculoskeletal: Present ROM normal NEUROLOGICAL Neurological: Present alert, Present oriented x 3, Present no gross motor or sensory deficits PSYCHOLOGICAL Psychological: Present mood/affect normal, Present judgement normal Results Laboratory Lab results reviewed: Yes Laboratory comments Laboratory Tests Test 03/07/20 18:02 White Blood Count 8.55 x10e3/uL (4.8-10.8) Red Blood Count 4.37 x10e6/uL (4.3-5.7) Hemoglobin 12.7 g/dL (14.0-18.0) Hematocrit 38.7 % (38.2-49.6) Mean Corpuscular Volume 88.6 fL (81-99) Mean Corpuscular Hemoglobin 29.1 pg (28-32) Mean Corpuscular Hemoglobin Concent 32.8 g/dL (31-35) Red Cell Distribution Width 13.0 % (11.7-14.4) Platelet Count 221 x10e3/uL (140-360) Neutrophils (%) (Auto) 57.2 % (38.7-80.0) Lymphocytes (%) (Auto) 33.3 % (18.0-39.1) Monocytes (%) (Auto) 6.9 % (4.4-11.3) Eosinophils (%) (Auto) 1.9 % (0.0-6.0) Basophils (%) (Auto) 0.5 % (0.0-1.0) Neutrophils # (Auto) 4.9 (2.1-6.9) Lymphocytes # (Auto) 2.9 (1.0-3.2) Monocytes # (Auto) 0.6 (0.2-0.8) Eosinophils # (Auto) 0.2 (0.0-0.4) Basophils # (Auto) 0.0 (0.0-0.1) Absolute Immature Granulocyte (auto 0.02 x10e3/uL (0-0.1) Sodium Level 141 mmol/L (136-145) Potassium Level 4.2 mmol/L (3.5-5.1) Chloride Level 108 mmol/L (98-107) Carbon Dioxide Level 27 mmol/L (22-29) Anion Gap 10.2 mmol/L (8-16) Blood Urea Nitrogen 18 mg/dL (7-26) Creatinine 1.49 mg/dL (0.72-1.25) Estimat Glomerular Filtration Rate 45 ML/MIN (60-) BUN/Creatinine Ratio 12 (6-25) Glucose Level 90 mg/dL (74-118) Calcium Level 9.3 mg/dL (8.4-10.2) Total Bilirubin 0.4 mg/dL (0.2-1.2) Aspartate Amino Transf (AST/SGOT) 23 IU/L (5-34) Alanine Aminotransferase (ALT/SGPT) 19 IU/L (0-55) Alkaline Phosphatase 62 IU/L (40-150) Creatine Kinase 104 IU/L (30-200) Creatine Kinase MB 1.10 ng/mL (0-5.0) Troponin I 0.001 ng/mL (0-0.300) Total Protein 7.4 g/dL (6.5-8.1) Albumin 3.9 g/dL (3.5-5.0) Globulin 3.5 g/dL (2.3-3.5) Albumin/Globulin Ratio 1.1 (0.8-2.0) Imaging Imaging results reviewed: Yes Assessment & Plan Medical Decision Making MDM 89-year-old well-appearing male arrives to the ED with epigastric abdominal pain, patient benign abdominal exam. No evidence of leukocytosis on lab work, no indication for CT scan given normal physical exam and lab work. Outpatient GI referral given. I personally made appointment for the patient for a GI doctor tomorrow at 9 AM. This patient presents with abdominal pain of unclear etiology. Their evaluation has not identified a emergent etiology for the abdominal pain. Specifically, given the very benign exam, normal laboratory studies, and lack of significant risk factors, I have a very low suspicion for appendicitis, ischemic bowel, bowel perforation, or any other life threatening disease. I have discussed with the patient the level of uncertainty with undifferentiated abdominal pain and clearly explained the need to follow-up as noted on the discharge instructions, or return to the Emergency Department immediately if the pain worsens, develops fever, persistent and uncontrollable vomiting, or for any new symptoms or concerns. I discussed with the patient that this presentation today for abdominal pain could represent a significant risk for an acute abdominal process. Although the tests in the ED were essentially normal, there is still a possibility of a process such as appendicitis, diverticulitis, cholecystitis, ulcer, early bowel obstruction, mesenteric ischemia, kidney stone, or even kidney infection which could subsequently cause disability or . The patient understands that they must return within 24 hours for a recheck or see their physician within 24 hours for re-exam due to the possibility of significant surgical or medical process. Assessment & Plan Final Impression: (1) Abdominal pain Depart Disposition: HOME, SELF-CARE Last Vital Signs Date Time Temp Pulse Resp B/P (MAP) Pulse Ox O2 Delivery O2 Flow Rate FiO2 03/07/20 16:01 98.1 56 18 163/59 98 Room Air Home Meds Active Scripts Omeprazole (OMEPRAZOLE) 40 Mg Capsule., 40 MG PO DAILY, #30 Prov:YOGESH BESS, DO 03/07/20 Reported Medications Lubiprostone (AMITIZA) 24 Mcg Capsule, 24 MCG PO DAILY, #60 CAP 08/15/18 Gabapentin (GABAPENTIN) 400 Mg Capsule, 400 MG PO BID, #30 CAP 08/15/18 Ranitidine Hcl (RANITIDINE HCL) 300 Mg Tablet, 300 MG PO DAILY 08/15/18 Nitrofurantoin Macrocrystal (NITROFURANTOIN) 100 Mg Capsule, 100 MG PO Q12H 08/15/18 [Linzess] No Conflict Check, 290 MG PO DAILY 03/13/18 Amlodipine Besylate (AMLODIPINE BESYLATE) 5 Mg Tablet, 5 MG PO DAILY, #30 TAB 03/13/18 Metoclopramide Hcl (METOCLOPRAMIDE HCL) 10 Mg Tablet, 10 MG PO BID, TAB 03/13/18 Omeprazole (OMEPRAZOLE) 40 Mg Capsule., 40 MG PO DAILY 12/29/15 Lovastatin (LOVASTATIN) 40 Mg Tablet, 40 MG PO HS 02/05/14 Hydrochlorothiazide (HYDROCHLOROTHIAZIDE) 25 Mg Tablet, 12.5 MG PO DAILY, #30 TAB 02/05/14 Losartan Potassium (LOSARTAN POTASSIUM) 100 Mg Tablet, 100 MG PO DAILY, TAB 02/05/14 Medications in the ED Famotidine 20 mg NOW STAT IV ; Start 03/07/20 at 16:33; Stop 03/07/20 at 16:36; Status DC YOGESH BESS, Mar 07, 2020 17:28
[2020-03-07 18:22] LABS: BASOPHILS % 0.5 % (0.0-1.0); EOSINOPHILS # (AUTO) 0.2 (0.0-0.4); EOSINOPHILS % 1.9 % (0.0-6.0); HEMATOCRIT 38.7 % (38.2-49.6); HEMOGLOBIN 12.7 g/dL (14.0-18.0); LYMPHOCYTES # (AUTO) 2.9 (1.0-3.2); LYMPHOCYTES % 33.3 % (18.0-39.1); MEAN CORPUSCULAR HEMOGLOBIN 29.1 pg (28-32); MEAN CORPUSCULAR HGB CONC 32.8 g/dL (31-35); MEAN CORPUSCULAR VOLUME 88.6 fL (81-99); MONOCYTES # (AUTO) 0.6 (0.2-0.8); MONOCYTES % 6.9 % (4.4-11.3); NEUTROPHILS # (AUTO) 4.9 (2.1-6.9); NEUTROPHILS % 57.2 % (38.7-80.0); PLATELET COUNT 221 x10e3/uL (140-360); RED BLOOD COUNT 4.37 x10e6/uL (4.3-5.7)
[2020-03-07 18:47] LABS: ALBUMIN 3.9 g/dL (3.5-5.0); ALBUMIN/GLOBULIN RATIO 1.1 (0.8-2.0); ANION GAP 10.2 mmol/L (8-16); CALCIUM 9.3 mg/dL (8.4-10.2); CREATININE, SERUM 1.49 mg/dL (0.72-1.25); POTASSIUM 4.2 mmol/L (3.5-5.1)
[2020-03-07 18:53] LABS: CREATINE KINASE MB 1.1 ng/mL (0-5.0)
[2020-03-07] MEDS ORDERED: OMEPRAZOLE40 MG PO (19:00)
--- NOTE | 2020-03-07 21:49 | Diagnostic Imaging Report ---
EXAM: CT Abdomen and Pelvis WITHOUT contrast INDICATION: Abdominal pain, no bowel movement COMPARISON: Abdominal CT 10/08/2019 TECHNIQUE: Abdomen and pelvis were scanned utilizing a multidetector helical scanner from the lung base to the pubic symphysis without administration of IV contrast. Absence of intravenous contrast decreases sensitivity for detection of focal lesions and vascular pathology. Coronal and sagittal reformations were obtained. Routine protocol was performed. IV CONTRAST: None ORAL CONTRAST: None COMPLICATIONS: None RADIATION DOSE: Total DLP: 423 mGy*cm Estimated effective dose: (DLP x 0.015 x size factor) mSv CTDIvol has been reviewed. It is below the limits set by the Radiation Protocol Committee (RPC). Dose modulation, iterative reconstruction, and/or weight based adjustment of the mA/kV was utilized to reduce the radiation dose to as low as reasonably achievable. FINDINGS: LINES and TUBES: None. LOWER THORAX: Subtle focal reticular nodular opacities in the medial right middle lobe and basal lateral right lower lobe with adjacent pleural parenchymal scarring. Triple vessel coronary artery calcific atherosclerosis. Lateral papillary muscle calcification. Small fat-containing hiatal hernia. HEPATOBILIARY: A 1.1 cm left hepatic hypodensity is likely benign, no follow-up required. Right hepatic benign calcified granuloma. No biliary ductal dilation. GALLBLADDER: There are cholecystectomy clips. SPLEEN: No splenomegaly. PANCREAS: No focal masses or ductal dilatation. ADRENALS: No adrenal nodules KIDNEYS/URETERS: No hydronephrosis. Benign-appearing cysts, largest in the right kidney, measures 4.8 cm. No cystic or solid mass lesions. No stones. GI TRACT: No abnormal distention, wall thickening, or evidence of bowel obstruction. Colonic diverticuli . Liquid stool in the left colon. No appendicitis. PELVIC ORGANS/BLADDER: Small prostate possibly due to TURP. LYMPH NODES: No lymphadenopathy. VESSELS: Arterial calcifications. Unremarkable. PERITONEUM / RETROPERITONEUM: No free air or fluid. BONES: Degenerative changes. SOFT TISSUES: Unremarkable. IMPRESSION: 1. Liquid stool in the left colon can be seen with diarrhea. 2. Coronary artery calcific atherosclerosis. 3. Colonic diverticulosis without diverticulitis. 4. Small fat-containing hiatal hernia. Signed by: Srini Hector DO on 03/07/2020 9:45 PM
[2020-03-07 22:00] VITALS: BP 167/68
== END 2020-03-07 22:05 | disposition home or self-care (01) ==
LOC: ER 16:55
DX: R10.13 Epigastric pain (principal); I10 Essential (primary) hypertension; K21.9 Gastro-esophageal reflux disease without esophagitis; Z87.19 Personal history of other diseases of the digestive system
CPT/HCPCS: 36415; 74176; 80053; 82550; 82553; 84484; 85025; 99284

== ENCOUNTER → 2020-03-08 | Outpatient (CLI) | payer MEDICARE ==
[~2020-03-08] MED LIST changes: +REGADENOSON 0.4 MG/5 ML SYR IV ONE
== END ==
LOC: NM 09:16
PROVIDERS: ATTEND Internal Medicine Cardiovascular Disease
DX: R07.9 Chest pain, unspecified (principal)
CPT/HCPCS: 78452; 93017; 93306; A9502; J2785

== ENCOUNTER → 2020-04-11 | Outpatient (CLI) | payer MEDICARE ==
[~2020-04-11] MED LIST changes: +IOPAMIDOL 370 MG/ML 200 ML INFUS..BTL INJ ONE; -REGADENOSON 0.4 MG/5 ML SYR IV ONE; +SODIUM CHLORIDE 0.9% 100 ML ONE; +SODIUM CHLORIDE 0.9% 250ML 250 ML ONE; +SODIUM CHLORIDE 0.9% 50ML 0 ML ONE
[2020-04-11 10:46] LABS: CREATININE, SERUM 1.6 mg/dL (0.72-1.25)
--- NOTE | 2020-04-11 13:22 | Diagnostic Imaging Report ---
Abdomen and Pelvis CTA WITH IV CONTRAST. INDICATION: Vascular obstruction, intestinal angina COMPARISON: CT abdomen/pelvis 03/07/2020 TECHNIQUE: The abdomen and pelvis were scanned utilizing a multidetector helical scanner from the lung base to the pubic symphysis after administration of IV contrast. Coronal and sagittal reformations were obtained. 3D post-processing of the images was performed, and the post-processed images were used in interpretation. CTA protocol was performed. IV CONTRAST: 100mL of Isovue 370 ORAL CONTRAST: None RADIATION DOSE: Total DLP: 474 mGy*cm FINDINGS: VESSELS: There are moderate calcified and noncalcified atherosclerotic plaques in the aorta and its major branches. There is no evidence of a flap within the aorta to suggest a dissection. No abdominal aortic aneurysm. The celiac artery, superior mesenteric artery, and inferior mesenteric artery are patent. There is a single right renal artery and a single left renal artery, both of which are patent. NON-VASCULAR: LOWER THORAX: The visualized lungs are clear. There are no pleural effusions. HEPATOBILIARY: No focal liver lesions. No biliary ductal dilation. Status post cholecystectomy. SPLEEN: No splenomegaly. PANCREAS: No focal masses or ductal dilatation. ADRENALS: No adrenal nodules. KIDNEYS/URETERS: No hydronephrosis or renal calculi. Stable bilateral renal cysts. PELVIC ORGANS/BLADDER: Unremarkable. PERITONEUM / RETROPERITONEUM: No free air or fluid. LYMPH NODES: No lymphadenopathy. GI TRACT: Diverticulosis without CT evidence of diverticulitis. No abnormal bowel thickening. No bowel obstruction. Status post appendectomy. BONES AND SOFT TISSUES: No acute fracture or dislocation. Degenerative changes of the visualized spine. No suspicious lytic or blastic lesions. IMPRESSION: No CTA evidence of mesenteric vascular occlusion. Diverticulosis without CT evidence of diverticulitis. No abnormal bowel thickening. Signed by: Sundar Alvarado MD on 04/11/2020 1:19 PM
--- NOTE | 2020-04-11 17:34 | Diagnostic Imaging Report ---
Solid-phase gastric emptying study Reason for examination: Abdominal distention (gaseous) The protocol used for this study is based on the Consensus Recommendations for Gastric Scintigraphy by the [place] [employer] and the Society of Nuclear Medicine. Clinical information: The patient is not diabetic. The patient has not had previous gastrointestinal surgery other than appendectomy and gallstone removal. The patient is not on any medications expected to affect gastric motility. The patient has been fasting for at least 6 hours prior to this exam. Radiopharmaceutical: Tc-99m sulfur colloid 1 mCi Report: The radiopharmaceutical was added to 1/2 cup egg whites that were then prepared and served with 2 pieces of white bread toasted, 30 grams of jam and 4 ounces of water. The patient took the meal orally without difficulty. Images were obtained of the abdomen in the anterior and posterior projections at 10 minutes post the meal and at 1, 2, 3, and 4 hours. Uptake was determined from the geometric mean of the anterior and posterior counts and the counts were corrected for decay of the radiolabel. The percent gastric retention of the labeled meal at: 1 hour was 59% (normal 30-90%) 2 hours was 27% (normal <60%) 3 hours was 15% (normal <30%) 4 hours was 1% (normal <10%) Impression: Normal gastric emptying rate. Findings do not support the clinical diagnosis of gastroparesis. Signed by: Dr. Mojgan Bob M.D. on 04/11/2020 5:31 PM
== END ==
LOC: NM 09:22
PROVIDERS: ATTEND Internal Medicine Gastroenterology
DX: R10.13 Epigastric pain (principal); K59.00 Constipation, unspecified
CPT/HCPCS: 36415; 74174; 78264; 82565; 84520; 96360; A9541; J7050 ×2; Q9967

== ENCOUNTER 2021-03-17 12:00 | Emergency (ER) | payer MEDICARE ==
[~2021-03-17] VITALS: Ht 165.1 cm; Wt 77.1 kg
[~2021-03-17 12:00] MED LIST changes: -IOPAMIDOL 370 MG/ML 200 ML INFUS..BTL INJ ONE; -SODIUM CHLORIDE 0.9% 100 ML ONE; -SODIUM CHLORIDE 0.9% 250ML 250 ML ONE; -SODIUM CHLORIDE 0.9% 50ML 0 ML ONE
[2021-03-17 13:19] LABS: BASOPHILS # (AUTO) 0.1 (0.0-0.1); BASOPHILS % 0.6 % (0.0-1.0); EOSINOPHILS # (AUTO) 0.2 (0.0-0.4); HEMATOCRIT 36.4 % (38.2-49.6); HEMOGLOBIN 12.3 g/dL (14.0-18.0); LYMPHOCYTES # (AUTO) 2.4 (1.0-3.2); LYMPHOCYTES % 26.1 % (18.0-39.1); MEAN CORPUSCULAR HEMOGLOBIN 30.3 pg (28-32); MEAN CORPUSCULAR HGB CONC 33.8 g/dL (31-35); MEAN CORPUSCULAR VOLUME 89.7 fL (81-99); MONOCYTES # (AUTO) 0.5 (0.2-0.8); MONOCYTES % 5.7 % (4.4-11.3); NEUTROPHILS # (AUTO) 5.9 (2.1-6.9); NEUTROPHILS % 65.4 % (38.7-80.0); PLATELET COUNT 220 x10e3/uL (140-360); RED BLOOD COUNT 4.06 x10e6/uL (4.3-5.7)
[2021-03-17 13:51] LABS: ALBUMIN 3.9 g/dL (3.5-5.0); ALBUMIN/GLOBULIN RATIO 1.1 (0.8-2.0); ANION GAP 13.7 mmol/L (8-16); CALCIUM 9.3 mg/dL (8.4-10.2); CREATININE, SERUM 1.54 mg/dL (0.72-1.25); POTASSIUM 3.7 mmol/L (3.5-5.1)
[2021-03-17 14:01] LABS: CREATINE KINASE MB 1.2 ng/mL (0-5.0)
[2021-03-17] MEDS ORDERED: IOPAMIDOL 370 MG/ML 200 ML INFUS..BTL INJ ONE (15:02)
[2021-03-17] MEDS ORDERED: SODIUM CHLORIDE 0.9% 50ML 50 ML ONE (15:02)
[2021-03-17 16:41] LABS: CLARITY,URINE CLEAR (CLEAR); COLOR,URINE YELLOW (YELLOW); KETONES,URINE NEGATIVE (NEGATIVE); LEUKOCYTE ESTERASE ,URINE NEGATIVE (NEGATIVE); NITRITE,URINE NEGATIVE (NEGATIVE); PROTEIN,URINE DIPSTICK NEGATIVE (NEGATIVE); URINE UROBILINOGEN 0.2 mg/dL (0.2 - 1)
[2021-03-17 16:52] LABS: BACTERIA,URINE MANY /HPF; EPITHELIAL CELLS,URINE MODERATE /LPF
== END 2021-03-17 17:47 | disposition home or self-care (01) ==
LOC: ER 12:21
DX: R10.33 Periumbilical pain (principal); I10 Essential (primary) hypertension; K21.9 Gastro-esophageal reflux disease without esophagitis
CPT/HCPCS: 36415; 74177; 80053; 81001; 82550; 82553; 83690; 83880; 84484; 85025; 93005; 99283; Q9967

== ENCOUNTER 2021-11-16 06:28 | Inpatient (IN) | payer MEDICARE, OTHER ==
[~2021-11-16] VITALS: Ht 165.1 cm; Wt 69.9 kg
[2021-11-16] MEDS ORDERED: ONDANSETRON HCL INJ 2MG/ML 2ML 2 MG/ML VIAL IV STA (06:50)
[2021-11-16] MEDS ORDERED: SODIUM CHLORIDE 0.9% 1000ML 1,000 ML IV STA (06:50)
[2021-11-16] MEDS ORDERED: SODIUM CHLORIDE 0.9% 500ML 500 ML IV ONE (07:00)
[2021-11-16 07:35] LABS: BASOPHILS # (AUTO) 0.1 (0.0-0.1); BASOPHILS % 0.6 % (0.0-1.0); EOSINOPHILS # (AUTO) 0.2 (0.0-0.4); EOSINOPHILS % 2.2 % (0.0-6.0); HEMATOCRIT 36.4 % (38.2-49.6); HEMOGLOBIN 12.4 g/dL (14.0-18.0); LYMPHOCYTES # (AUTO) 2.3 (1.0-3.2); LYMPHOCYTES % 24.3 % (18.0-39.1); MEAN CORPUSCULAR HEMOGLOBIN 30.8 pg (28-32); MEAN CORPUSCULAR HGB CONC 34.1 g/dL (31-35); MEAN CORPUSCULAR VOLUME 90.3 fL (81-99); MONOCYTES # (AUTO) 0.7 (0.2-0.8); MONOCYTES % 6.9 % (4.4-11.3); NEUTROPHILS # (AUTO) 6.3 (2.1-6.9); NEUTROPHILS % 65.8 % (38.7-80.0); PLATELET COUNT 197 x10e3/uL (140-360); RED BLOOD COUNT 4.03 x10e6/uL (4.3-5.7); RED CELL DISTRIBUTION WIDTH 12.8 % (11.7-14.4)
[2021-11-16 07:45] LABS: INR 0.95; PROTHROMBIN TIME 13.6 seconds (11.9-14.5)
[2021-11-16 07:46] LABS: PARTIAL THROMBOPLASTIN TIME 30.2 seconds (23.8-35.5)
[2021-11-16 07:49] LABS: CLARITY,URINE CLEAR (CLEAR); COLOR,URINE YELLOW (YELLOW); KETONES,URINE NEGATIVE (NEGATIVE); LEUKOCYTE ESTERASE ,URINE NEGATIVE (NEGATIVE); NITRITE,URINE NEGATIVE (NEGATIVE); PROTEIN,URINE DIPSTICK NEGATIVE (NEGATIVE); URINE UROBILINOGEN 0.2 mg/dL (0.2 - 1)
[2021-11-16 07:51] LABS: BACTERIA,URINE FEW /HPF; EPITHELIAL CELLS,URINE FEW /LPF; RBC,URINE 0-5 /HPF (0-5)
[2021-11-16 07:56] LABS: ALBUMIN 3.4 g/dL (3.5-5.0); ANION GAP 10.2 mmol/L (8-16); CREATININE, SERUM 1.55 mg/dL (0.72-1.25); POTASSIUM 3.2 mmol/L (3.5-5.1)
[2021-11-16 08:03] LABS: CREATINE KINASE MB 1.6 ng/mL (0-5.0)
[2021-11-16] MEDS ORDERED: SODIUM CHLORIDE 0.9% 50ML 50 ML ONE (08:17)
[2021-11-16] MEDS ORDERED: IOPAMIDOL 370 MG/ML 200 ML INFUS..BTL INJ ONE (08:17)
[2021-11-16] MEDS ORDERED: FAMOTIDINE 20 MG/2 ML VIAL IV SCH (09:11)
[2021-11-16] MEDS ORDERED: ONDANSETRON HCL INJ 2MG/ML 2ML 2 MG/ML VIAL IV PRN (09:15)
[2021-11-16] MEDS ORDERED: POTASSIUM CHLORIDE 20 MEQ TAB CR PO ONE (09:30)
[2021-11-16] MEDS ORDERED: XANAX0.25 MG PO (09:58)
[2021-11-16 10:00] VITALS: BP 145/55
[2021-11-16 10:29] VITALS: BP 145/55
[2021-11-16 11:57] VITALS: BP 143/52
[2021-11-16 15:52] LABS: CREATINE KINASE MB 1.9 ng/mL (0-5.0)
[2021-11-16 16:27] VITALS: BP 163/58
[2021-11-16] MEDS ORDERED: SODIUM CHLORIDE 0.9% 100 ML ONE (16:58)
[2021-11-16] MEDS: Pantoprazole IV 40 MG in SODIUM CHLORIDE 0.9% 50ML 50 ML IV SCH ×2 (17:00→22:36)
[2021-11-16] MEDS ORDERED: CITRATE OF MAGNESIA 300ML BOTTLE PO ONE (17:00)
[2021-11-16 20:00] VITALS: BP 163/58
[2021-11-16 20:10] VITALS: BP 144/52
[2021-11-16] MEDS: SIMVASTATIN 40 MG TAB PO SCH (21:07)
[2021-11-16] MEDS ORDERED: ACETAMINOPHEN 325 MG TAB PO PRN (22:15)
[2021-11-16] MEDS: PREGABALIN 75 MG CAP PO SCH (22:37)
[2021-11-16] MEDS: MELATONIN 5 MG TABLET PO SCH (22:37)
[2021-11-17] VITALS (9 sets, daily range): BP systolic 132–160; BP diastolic 50–60
[2021-11-17] MEDS: Pantoprazole IV 40 MG in SODIUM CHLORIDE 0.9% 50ML 50 ML IV SCH ×5 (03:00→23:50)
[2021-11-17 05:06] LABS: BASOPHILS # (AUTO) 0.1 (0.0-0.1); BASOPHILS % 0.6 % (0.0-1.0); EOSINOPHILS # (AUTO) 0.3 (0.0-0.4); EOSINOPHILS % 3.4 % (0.0-6.0); HEMATOCRIT 37.1 % (38.2-49.6); HEMOGLOBIN 12.4 g/dL (14.0-18.0); LYMPHOCYTES % 23.2 % (18.0-39.1); MEAN CORPUSCULAR HEMOGLOBIN 30.7 pg (28-32); MEAN CORPUSCULAR HGB CONC 33.4 g/dL (31-35); MEAN CORPUSCULAR VOLUME 91.8 fL (81-99); MONOCYTES # (AUTO) 0.7 (0.2-0.8); MONOCYTES % 7.8 % (4.4-11.3); NEUTROPHILS # (AUTO) 5.5 (2.1-6.9); NEUTROPHILS % 64.8 % (38.7-80.0); PLATELET COUNT 185 x10e3/uL (140-360); RED BLOOD COUNT 4.04 x10e6/uL (4.3-5.7); RED CELL DISTRIBUTION WIDTH 13.1 % (11.7-14.4)
[2021-11-17 05:31] LABS: ALBUMIN 3.2 g/dL (3.5-5.0); ANION GAP 8.7 mmol/L (8-16); CALCIUM 9.5 mg/dL (8.4-10.2); CHOL/HDL RATIO 3.4 (3.9-4.7); CREATININE, SERUM 1.55 mg/dL (0.72-1.25); POTASSIUM 3.7 mmol/L (3.5-5.1)
[2021-11-17 05:53] LABS: CREATINE KINASE MB 1.6 ng/mL (0-5.0)
[2021-11-17] MEDS ORDERED: ONDANSETRON HCL 4 MG ORAL DISINTEGRATING TAB PO PRN (06:45)
[2021-11-17] MEDS: LINACLOTIDE 145 MCG CAPSULE PO SCH (07:56)
[2021-11-17] MEDS: PREGABALIN 75 MG CAP PO SCH ×2 (08:51→16:50)
[2021-11-17] MEDS: LOSARTAN POTASSIUM 100 MG TAB PO SCH (08:51)
[2021-11-17] MEDS: ALPRAZOLAM 0.25 MG TAB PO SCH (08:52)
[2021-11-17] MEDS: AMLODIPINE BESYLATE 5 MG TAB PO SCH (08:52)
[2021-11-17] MEDS ORDERED: LINZESS 290 MG PO SCH (09:00)
[2021-11-17 14:17] LABS: CREATINE KINASE MB 1.7 ng/mL (0-5.0)
[2021-11-17] MEDS: MELATONIN 5 MG TABLET PO SCH (20:47)
[2021-11-17] MEDS: SIMVASTATIN 40 MG TAB PO SCH (20:47)
[2021-11-18] VITALS (8 sets, daily range): BP systolic 112–162; BP diastolic 48–57
[2021-11-18] MEDS: Pantoprazole IV 40 MG in SODIUM CHLORIDE 0.9% 50ML 50 ML IV SCH ×4 (06:19→20:00)
[2021-11-18] MEDS: AMLODIPINE BESYLATE 5 MG TAB PO SCH (09:10)
[2021-11-18] MEDS: LINACLOTIDE 145 MCG CAPSULE PO SCH (09:10)
[2021-11-18] MEDS: ALPRAZOLAM 0.25 MG TAB PO SCH (09:10)
[2021-11-18] MEDS: PREGABALIN 75 MG CAP PO SCH ×2 (09:10→16:55)
[2021-11-18] MEDS: LOSARTAN POTASSIUM 100 MG TAB PO SCH (09:10)
[2021-11-18] MEDS ORDERED: POLYETHYLENE GLYCOL 3350 17 GM PACK PO SCH (11:45)
[2021-11-18] MEDS ORDERED: POLYETHYLENE GLYCOL 3350 17 GM PACK PO PRN (12:15)
[2021-11-18] MEDS: SENNOSIDES 8.6 MG TAB PO SCH (14:34)
[2021-11-18] MEDS: MELATONIN 5 MG TABLET PO SCH (20:00)
[2021-11-18] MEDS: SIMVASTATIN 40 MG TAB PO SCH (20:00)
[2021-11-19] VITALS (8 sets, daily range): BP systolic 113–161; BP diastolic 49–97
[2021-11-19] MEDS: Pantoprazole IV 40 MG in SODIUM CHLORIDE 0.9% 50ML 50 ML IV SCH ×3 (00:30→10:30)
[2021-11-19 05:31] LABS: BASOPHILS # (AUTO) 0.1 (0.0-0.1); BASOPHILS % 0.5 % (0.0-1.0); EOSINOPHILS # (AUTO) 0.4 (0.0-0.4); EOSINOPHILS % 4.6 % (0.0-6.0); HEMATOCRIT 38.6 % (38.2-49.6); HEMOGLOBIN 12.4 g/dL (14.0-18.0); LYMPHOCYTES # (AUTO) 2.6 (1.0-3.2); MEAN CORPUSCULAR HEMOGLOBIN 30.3 pg (28-32); MEAN CORPUSCULAR HGB CONC 32.1 g/dL (31-35); MEAN CORPUSCULAR VOLUME 94.4 fL (81-99); MONOCYTES # (AUTO) 0.6 (0.2-0.8); MONOCYTES % 6.4 % (4.4-11.3); NEUTROPHILS # (AUTO) 5.5 (2.1-6.9); NEUTROPHILS % 60.3 % (38.7-80.0); PLATELET COUNT 183 x10e3/uL (140-360); RED BLOOD COUNT 4.09 x10e6/uL (4.3-5.7); RED CELL DISTRIBUTION WIDTH 12.9 % (11.7-14.4)
[2021-11-19 05:50] LABS: ANION GAP 9.1 mmol/L (8-16); CALCIUM 8.7 mg/dL (8.4-10.2); CREATININE, SERUM 1.41 mg/dL (0.72-1.25); MAGNESIUM 2.4 MG/DL (1.3-2.1); POTASSIUM 4.1 mmol/L (3.5-5.1)
[2021-11-19] MEDS: LINACLOTIDE 145 MCG CAPSULE PO SCH (08:29)
[2021-11-19] MEDS: DOCUSATE SODIUM 100 MG CAP PO SCH (08:29)
[2021-11-19] MEDS: SENNOSIDES 8.6 MG TAB PO SCH (08:30)
[2021-11-19] MEDS: LOSARTAN POTASSIUM 100 MG TAB PO SCH (08:30)
[2021-11-19] MEDS: PREGABALIN 75 MG CAP PO SCH ×2 (08:30→16:34)
[2021-11-19] MEDS: ALPRAZOLAM 0.25 MG TAB PO SCH (08:30)
[2021-11-19] MEDS: AMLODIPINE BESYLATE 5 MG TAB PO SCH (08:30)
[2021-11-19] MEDS ORDERED: BISACODYL 10 MG SUPP PR NR (11:45)
[2021-11-19] MEDS: SIMVASTATIN 40 MG TAB PO SCH (20:30)
[2021-11-19] MEDS: MELATONIN 5 MG TABLET PO SCH (20:30)
[2021-11-20] VITALS (7 sets, daily range): BP systolic 134–168; BP diastolic 52–82
[2021-11-20 04:53] LABS: BASOPHILS # (AUTO) 0.1 (0.0-0.1); BASOPHILS % 0.6 % (0.0-1.0); EOSINOPHILS # (AUTO) 0.5 (0.0-0.4); EOSINOPHILS % 5.9 % (0.0-6.0); HEMATOCRIT 38.8 % (38.2-49.6); LYMPHOCYTES # (AUTO) 2.5 (1.0-3.2); LYMPHOCYTES % 30.5 % (18.0-39.1); MEAN CORPUSCULAR HEMOGLOBIN 30.6 pg (28-32); MEAN CORPUSCULAR HGB CONC 33.5 g/dL (31-35); MONOCYTES # (AUTO) 0.6 (0.2-0.8); MONOCYTES % 7.6 % (4.4-11.3); NEUTROPHILS # (AUTO) 4.5 (2.1-6.9); NEUTROPHILS % 55.3 % (38.7-80.0); PLATELET COUNT 183 x10e3/uL (140-360); RED BLOOD COUNT 4.25 x10e6/uL (4.3-5.7); RED CELL DISTRIBUTION WIDTH 12.9 % (11.7-14.4)
[2021-11-20 05:02] LABS: MEAN CORPUSCULAR VOLUME 91.3 fL (81-99)
[2021-11-20 05:13] LABS: CREATININE, SERUM 1.32 mg/dL (0.72-1.25); MAGNESIUM 2.2 MG/DL (1.3-2.1)
[2021-11-20] MEDS: LINACLOTIDE 145 MCG CAPSULE PO SCH (07:30)
[2021-11-20] MEDS: PANTOPRAZOLE SOD 40 MG TABEC PO SCH (07:30)
[2021-11-20] MEDS: LOSARTAN POTASSIUM 100 MG TAB PO SCH (09:00)
[2021-11-20] MEDS: SENNOSIDES 8.6 MG TAB PO SCH (09:00)
[2021-11-20] MEDS: ALPRAZOLAM 0.25 MG TAB PO SCH (09:00)
[2021-11-20] MEDS: DOCUSATE SODIUM 100 MG CAP PO SCH (09:00)
[2021-11-20] MEDS: AMLODIPINE BESYLATE 5 MG TAB PO SCH (09:00)
[2021-11-20] MEDS: PREGABALIN 75 MG CAP PO SCH ×2 (09:00→17:00)
[2021-11-20] MEDS ORDERED: Vancomycin IV 1 GM VIAL ONE (16:40)
[2021-11-20] MEDS ORDERED: SODIUM CHLORIDE 0.9% 1000ML 2,000 ML ONE (16:40)
[2021-11-20] MEDS ORDERED: HEPARIN SOD/SOD CHLORIDE 1,000 ML ONE (16:40)
[2021-11-20] MEDS ORDERED: LIDOCAINE 1% W/EPINEPHRINE 20 ML VIAL ONE ×3 (16:40→17:50)
[2021-11-20] MEDS ORDERED: GENTAMICIN SULFATE 40 MG/ML 2 ML VIAL ONE ×2 (16:40→17:08)
[2021-11-20] MEDS ORDERED: SODIUM CHLORIDE 0.9% 250ML 250 ML ONE (16:41)
[2021-11-20] MEDS ORDERED: FENTANYL CITRATE/PF 100MCG/2 ML INJ ONE (17:27)
[2021-11-20] MEDS ORDERED: MIDAZOLAM HCL 2 MG/2 ML VIAL ONE (17:27)
[2021-11-20] MEDS: MELATONIN 5 MG TABLET PO SCH (21:19)
[2021-11-20] MEDS: Cefazolin 1 GM in SODIUM CHLORIDE 0.9% 50ML 50 ML IV SCH (21:19)
[2021-11-20] MEDS: SIMVASTATIN 40 MG TAB PO SCH (21:19)
[2021-11-20] MEDS: Morphine 2mg Syringe 2 MG/ML SYR IV PRN (21:40)
[2021-11-21] VITALS: BP 154/50
[2021-11-21 04:00] VITALS: BP 176/58
[2021-11-21] MEDS: Cefazolin 1 GM in SODIUM CHLORIDE 0.9% 50ML 50 ML IV SCH (05:32)
[2021-11-21] MEDS: Morphine 2mg Syringe 2 MG/ML SYR IV PRN (05:33)
[2021-11-21] MEDS: PANTOPRAZOLE SOD 40 MG TABEC PO SCH (06:56)
[2021-11-21] MEDS: LINACLOTIDE 145 MCG CAPSULE PO SCH (06:56)
[2021-11-21 08:00] VITALS: BP 164/63
[2021-11-21] MEDS: SENNOSIDES 8.6 MG TAB PO SCH (08:01)
[2021-11-21] MEDS: ALPRAZOLAM 0.25 MG TAB PO SCH (08:01)
[2021-11-21] MEDS: LOSARTAN POTASSIUM 100 MG TAB PO SCH (08:01)
[2021-11-21] MEDS: PREGABALIN 75 MG CAP PO SCH (08:01)
[2021-11-21] MEDS: DOCUSATE SODIUM 100 MG CAP PO SCH (08:01)
[2021-11-21] MEDS: AMLODIPINE BESYLATE 5 MG TAB PO SCH (08:01)
[2021-11-21 08:14] VITALS: BP 164/63
[2021-11-21 12:12] VITALS: BP 144/65
== END 2021-11-21 13:10 | disposition home or self-care (01) | DRG 243 ==
LOC: ER 07:10 → ERHOLD 09:01 → MED/SURG 09:43
PROC: 0JH606Z Insertion of Pacemaker, Dual Chamber into Chest Subcutaneous Tissue and Fascia, Open Approach (ICD-10-PCS; principal; 2021-11-20)
PROC: 02HK3JZ Insertion of Pacemaker Lead into Right Ventricle, Percutaneous Approach (ICD-10-PCS; 2021-11-20)
PROC: 02H63JZ Insertion of Pacemaker Lead into Right Atrium, Percutaneous Approach (ICD-10-PCS; 2021-11-20)
DX: I49.5 Sick sinus syndrome (principal); K56.609 Unspecified intestinal obstruction, unspecified as to partial versus complete obstruction; I10 Essential (primary) hypertension; E78.00 Pure hypercholesterolemia, unspecified; N40.0 Benign prostatic hyperplasia without lower urinary tract symptoms; I12.9 Hypertensive chronic kidney disease with stage 1 through stage 4 chronic kidney disease, or unspecified chronic kidney disease; G62.9 Polyneuropathy, unspecified; E78.5 Hyperlipidemia, unspecified; J44.9 Chronic obstructive pulmonary disease, unspecified; N18.32 Chronic kidney disease, stage 3b; K21.9 Gastro-esophageal reflux disease without esophagitis
CPT/HCPCS: 33208; 36415; 71045; 74177; 80048; 80053; 80061; 81001; 82550; 82553; 83690; 83735; 83880; 84443; 84484; 85025; 85610; 85730; 87086; 93005; 93306; 93880; 94799; 97139; 99152; 99153; 99284; J0690; J1580; J2250; J2270; J2405; J3010; J3370; J7030; J7040; J7050; Q9967; U0002